=== PATIENT | female | born 1955 | race Caucasian/White ===

== ENCOUNTER 2020-03-16 04:27 | Emergency (ER) | payer MEDICARE, OTHER ==
[~2020-03-16] VITALS: Ht 160 cm; Wt 74.8 kg
--- NOTE | 2020-03-16 04:39 | NUR ---
PT CAME TO THE ER C/O NASUEA AND VOMITING X 4 DAYS. PT DENIES ABD PAIN. PT AAOX4, VSS, RESPIRATIONS EVEN AND UNLABORED ON RA W/ NAD NOTED. PT CONNECTED TO THE MONITOR AND POX
[2020-03-16] MEDS ORDERED: ONDANSETRON HCL/PF 4 MG/2 ML VIAL IVP ONE (05:00)
[2020-03-16] MEDS ORDERED: IV NS 0.9% 1,000 ML BAG IV ONE (05:00)
[2020-03-16] MEDS ORDERED: ONDANSETRON HCL/PF 4 MG/2 ML VIAL ONE (05:02)
[2020-03-16 05:09] LABS: BASOPHILS % (AUTO) 0.5 % (0.0-2.0); EOSINOPHILS % (AUTO) 1.6 % (0.0-6.0); HEMATOCRIT 47 % (33-45); HEMOGLOBIN 15.5 g/dL (11.5-14.8); LYMPHOCYTES # (AUTO) 1.3 /CMM (0.8-4.8); LYMPHOCYTES % (AUTO) 17.7 % (20.0-44.0); MEAN CORPUSCULAR HGB CONC 33 g/dl (31.0-36.0); MEAN CORPUSCULAR VOLUME 95 fL (82-100); MONOCYTES # (AUTO) 1.2 /CMM (0.1-1.30); MONOCYTES % (AUTO) 15.5 % (2.0-12.0); NEUTROPHILS # (AUTO) 4.9 /CMM (1.8-8.9); NEUTROPHILS % (AUTO) 64.7 % (43.0-81.0); PLATELET COUNT (AUTO) 298 /CMM (150-450); RED BLOOD CELL COUNT(AUTO) 4.89 MIL/uL (4.0-5.2); WHITE BLOOD COUNT (AUTO) 7.6 K/uL (4.3-11.0)
[2020-03-16 05:51] LABS: MONOCYTES % (MANUAL) 10 % (0-11.0)
[2020-03-16 05:52] LABS: LYMPHOCYTES % (MANUAL) 20 % (16-48)
[2020-03-16 05:53] LABS: EOSINOPHILS % (MANUAL) 1 % (0-4)
[2020-03-16 05:54] LABS: NEUTROPHILS % (MANUAL) 69 (42-76)
[2020-03-16 06:10] LABS: ALANINE AMINOTRANSFERASE 16 U/L (12-78); ALKALINE PHOSPHATASE 92 U/L (46-116); ASPARTATE AMINOTRANSFERASE 19 U/L (15-37); BILIRUBIN,DIRECT 0.2 mg/dL (0.0-0.2); BILIRUBIN,TOTAL 0.7 mg/dL (0.2-1.0); CALCIUM, SERUM 9.5 mg/dL (8.5-10.1); CARBON DIOXIDE 25 mmol/L (21-32); CHLORIDE 104 mmol/L (98-107); CREATININE 1.1 mg/dL (0.6-1.3); GLUCOSE 94 mg/dL (74-106); LIPASE 50 U/L (73-393); POTASSIUM 3.7 mmol/L (3.5-5.1); SODIUM SERUM 142 mmol/L (136-145); TOTAL PROTEIN, SERUM 8.7 g/dL (6.4-8.2); UREA NITROGEN, BLOOD 24 mg/dL (7-18)
--- NOTE | 2020-03-16 06:42 | NUR ---
IV removed. Catheter intact and site benign. Pressure and 4x4 applied to site. No bleeding noted.
--- NOTE | 2020-03-16 06:42 | NUR ---
Patient discharged to home in stable condition. Written and verbal after care instructions given. Patient verbalizes understanding of instruction and RX. Pt ambulated with steady gait. Denies pain.
[2020-03-16 06:43] VITALS: BP 132/77
[2020-03-17] MEDS ORDERED: EMTR1TAB17 PO (12:53)
[2020-03-17] MEDS ORDERED: ASPI-1420 PO (12:53)
[2020-03-17] MEDS ORDERED: VALS80TA31 PO (12:53)
[2020-03-17] MEDS ORDERED: AMIT50TA3 PO (12:53)
[2020-03-17] MEDS ORDERED: OMEP20CA15 PO (12:53)
[2020-03-17] MEDS ORDERED: DOLU50TA PO (12:53)
== END 2020-03-16 06:43 | disposition home or self-care (01) ==
LOC: ER 04:31
DX: R11.2 Nausea with vomiting, unspecified (principal); I10 Essential (primary) hypertension; E78.5 Hyperlipidemia, unspecified
CPT/HCPCS: 36415; 80048; 80076; 83690; 84484; 85025; 93005; 96361; 96374; 99284; J2405; J7030

== ENCOUNTER 2020-03-17 09:03 | Inpatient (IN) | payer MEDICAID, MEDICARE ==
[~2020-03-17] VITALS: Ht 165.1 cm; Wt 79.4 kg
--- NOTE | 2020-03-17 09:15 | NUR ---
CAME IN FOR NAUSEA AND VOMITING X 3 DAYS, STATES "I WAS HERE YESTERDAY WITH THE SAME REASON, I HAVEN'T BEEN ABLE TO DRINK OR EAT ANYTHING, THE MEDICATION THEY GAVE ME DIDN'T WORK". TO ER BED 9, HOOKED TO MONITOR, CHANGED TO HOSP GOWN, WARM BLANKET PROVIDED, PATIENT AAO x 4, BREATHING EVEN AND UNLABORED. DR SERRANO AT BEDSIDE
[2020-03-17] MEDS ORDERED: ONDANSETRON HCL/PF 4 MG/2 ML VIAL ONE ×2 (09:29→10:55)
[2020-03-17] MEDS ORDERED: ONDANSETRON HCL/PF 4 MG/2 ML VIAL IVP ONE (09:30)
[2020-03-17] MEDS ORDERED: IV NS 0.9% 500 ML BAG IV ONE (09:30)
--- NOTE | 2020-03-17 09:40 | NUR ---
URINE SAMPLE COLLECTED AND SENT TO LAB
[2020-03-17 09:42] LABS: BASOPHILS % (AUTO) 0.4 % (0.0-2.0); HEMATOCRIT 45 % (33-45); LYMPHOCYTES # (AUTO) 1.2 /CMM (0.8-4.8); LYMPHOCYTES % (AUTO) 13.5 % (20.0-44.0); MEAN CORPUSCULAR HGB CONC 33 g/dl (31.0-36.0); MEAN CORPUSCULAR VOLUME 97 fL (82-100); MONOCYTES % (AUTO) 10.9 % (2.0-12.0); NEUTROPHILS # (AUTO) 6.7 /CMM (1.8-8.9); NEUTROPHILS % (AUTO) 74.2 % (43.0-81.0); PLATELET COUNT (AUTO) 298 /CMM (150-450); RED BLOOD CELL COUNT(AUTO) 4.66 MIL/uL (4.0-5.2)
[2020-03-17 09:51] LABS: BILIRUBIN,URINE MODERATE (NEGATIVE); BLOOD, URINE Small Ery/uL (NEGATIVE); KETONES,URINE 80 (NEGATIVE); LEUKOCYTE ESTERASE ,URINE Small (NEGATIVE); NITRITE, URINE Negative (NEGATIVE); PH,URINE 5.5 (5.0-8.0); PROTEIN,URINE 30 mg/dl (NEGATIVE); UGLUCOSE Negative (NEGATIVE)
[2020-03-17 09:53] LABS: APPEARANCE,URINE SLIGHTLY CLOUDY (CLEAR); COLOR,URINE DARK YELLOW (YELLOW)
[2020-03-17 09:58] LABS: ALBUMIN 3.8 g/dL (3.4-5.0); BILIRUBIN,DIRECT 0.2 mg/dL (0.0-0.2); BILIRUBIN,TOTAL 0.7 mg/dL (0.2-1.0); POTASSIUM 4.1 mmol/L (3.5-5.1); TOTAL PROTEIN, SERUM 8.3 g/dL (6.4-8.2)
[2020-03-17 09:58] LABS: BACTERIA,URINE Few /HPF (None Seen); SQUAMOUS EPITHELIAL CELL,UR Moderate /HPF (None Seen)
[2020-03-17] MEDS ORDERED: ONDANSETRON HCL/PF 4 MG/2 ML VIAL IV ONE (11:00)
[2020-03-17] MEDS ORDERED: IV NS 0.9% 1,000 ML IV ONE (11:00)
--- NOTE | 2020-03-17 12:46 | NUR ---
[facility].
[2020-03-17] MEDS ORDERED: ASPI-1420 PO (12:53)
[2020-03-17] MEDS ORDERED: DOLU50TA PO (12:53)
[2020-03-17] MEDS ORDERED: VALS80TA31 PO (12:53)
[2020-03-17] MEDS ORDERED: OMEP20CA15 PO (12:53)
[2020-03-17] MEDS ORDERED: EMTR1TAB17 PO (12:53)
[2020-03-17] MEDS ORDERED: AMIT50TA3 PO (12:53)
[2020-03-17] MEDS ORDERED: CEFTRIAXONE 1 G in IV D5W 50 ML IV ONE (13:30)
[2020-03-17] MEDS ORDERED: CEFTRIAXONE 1GM BAG (ER ONLY) 50 ML IV ONE (13:56)
[2020-03-17] MEDS ORDERED: FAMOTIDINE/PF INJ 20 MG/2 ML VIAL IV ONE ×2 (13:57→14:00)
[2020-03-17] MEDS ORDERED: MAG HYDROX/AL HYDROX/SIMETH 30 ML UDC ONE (13:57)
[2020-03-17] MEDS ORDERED: LIDOCAINE VISCOUS 2% UD 15 ML UDC ONE (13:57)
[2020-03-17] MEDS ORDERED: MAG HYDROX/AL HYDROX/SIMETH 30 ML UDC PO ONE (14:00)
[2020-03-17] MEDS ORDERED: LIDOCAINE VISCOUS 2% UD 15 ML UDC MM ONE (14:00)
[2020-03-17] MEDS ORDERED: IV NS 0.9% 1,000 ML IV PRN (14:05)
--- NOTE | 2020-03-17 14:11 | NUR ---
RAPID COVID SWAB DONE AND SENT TO LAB.
--- NOTE | 2020-03-17 14:22 | NUR ---
DR SPAULDING AT BEDSIDE
[2020-03-17] MEDS ORDERED: MAG HYDROX/AL HYDROX/SIMETH 30 ML UDC PO PRN (14:30)
[2020-03-17] MEDS ORDERED: ZOLPIDEM TARTRATE 5 MG TABLET PO PRN (14:30)
[2020-03-17] MEDS ORDERED: HYDROCODONE/APAP 5/325MG TABLET PO PRN (14:30)
[2020-03-17] MEDS ORDERED: ACETAMINOPHEN 325 MG TABLET PO PRN (14:30)
[2020-03-17] MEDS ORDERED: MAGNESIUM HYDROXIDE 30 ML UDC PO PRN (14:30)
[2020-03-17] MEDS ORDERED: ONDANSETRON HCL/PF 4 MG/2 ML VIAL IVP PRN (14:30)
[2020-03-17] MEDS ORDERED: Z GUARD REMEDY 2 OZ OINT TP PRN (14:30)
[2020-03-17] MEDS ORDERED: ENOXAPARIN SODIUM 30 MG/0.3 ML DISP.SYRIN SQ SCH (14:30)
--- NOTE | 2020-03-17 15:04 | NUR ---
CALLED NURSING SUP FOR BED, PER NURSING SUP WILL "CALL BACK IN 10 MINUTES".
--- NOTE | 2020-03-17 15:11 | NUR ---
CALLED NURSING SUP FOR M/S BED.
--- NOTE | 2020-03-17 15:12 | NUR ---
NURSING SUP GAVE M/S BED 109-1.
--- NOTE | 2020-03-17 15:46 | NUR ---
REPORT GIVEN TO B[facility]ITO DE OF [facility] UNIT
[2020-03-17] MEDS ORDERED: ENOXAPARIN SODIUM 40 MG/0.4 ML DISP.SYRIN SQ SCH (17:00)
--- NOTE | 2020-03-17 17:04 | NUR ---
transferred to [facility] unit by county program technician
--- NOTE | 2020-03-17 17:05 | NUR ---
RN NOTES RECEIVED PT FROM ER . PT IS ALERT AND ORIENTED X4. PT IS IN ROOM AIR 96%. PT CAME IN FOR NAUSEA AND VOMITING SINCE FRIDAY. SKIN IS INTACT.AMBULATORY AND USES TOILET .SAFETY MEASUREMENTS ARE IMPLEMENTED BY HOSPITAL . BED IS IN THE LOWEST POSITION. SIDE RAILS ARE UP X2. CALL LIGHT WITHIN REACH. WILL CONTINUE TO MONITOR.
--- NOTE | 2020-03-17 19:21 | NUR ---
RN CLOSING NOTES PT IS RESTING IN BED, ALERT AND ORIENTED X4. SPEAKS CENTRAL AFRICAN. FULL CODE PER PATIENT AND WINTER BEING IN THE ROOM. ENDORSED TO DENTAL AMALGAM PROCESSOR NURSE ABOUT NPO AFTER MIDNIGHT, CONSENT FORM AND PUTTING NG TUBE BEFORE EGD PROCEDURE O REDUCE ASPIRATION PRECAUTION. PT IS ON ROOM AIR SATURATING AT 97% ON SR ON THE MONITOR IN MED SURGE, LEFT ACg# 22 INTACT, PATENT AND FLUSHING WELL. ALL NEEDS ATTENDED TOO, CALL LIGHT WITHIN REACH AND FUNCTIONING. BED LOCKED AND IN LOWEST POSITION.WILL ENDORSE TO NIGHTSHIFT FOR MERARY
[2020-03-17] MEDS ORDERED: AMITRIPTYLINE HCL 50 MG TABLET PO PRN (19:30)
[2020-03-17] MEDS ORDERED: AMITRIPTYLINE HCL 25 MG TABLET PO PRN (19:41)
[2020-03-17 20:00] VITALS: BP 119/76
--- NOTE | 2020-03-17 20:00 | NUR ---
RN OPENING NOTE PT RECEIVED IN BED , A/A/O X4 .VSS, PT HAS IV ACCESS L AC 20G, PATENT. SAFETY MEASURES IN PLACE BED AT LOWEST POSITION LOCKED, CALL LIGHT IN REACH, SIDE RAILS X2 UP.
[2020-03-18 04:00] VITALS: BP 115/55
[2020-03-18 06:34] LABS: BASOPHILS % (AUTO) 0.8 % (0.0-2.0); EOSINOPHILS % (AUTO) 3.1 % (0.0-6.0); HEMATOCRIT 40 % (33-45); HEMOGLOBIN 13.2 g/dL (11.5-14.8); LYMPHOCYTES # (AUTO) 1.2 /CMM (0.8-4.8); LYMPHOCYTES % (AUTO) 22.4 % (20.0-44.0); MEAN CORPUSCULAR HGB CONC 33 g/dl (31.0-36.0); MEAN CORPUSCULAR VOLUME 96 fL (82-100); MONOCYTES # (AUTO) 0.9 /CMM (0.1-1.30); MONOCYTES % (AUTO) 17.9 % (2.0-12.0); NEUTROPHILS # (AUTO) 2.9 /CMM (1.8-8.9); NEUTROPHILS % (AUTO) 55.8 % (43.0-81.0); PLATELET COUNT (AUTO) 244 /CMM (150-450); RED BLOOD CELL COUNT(AUTO) 4.16 MIL/uL (4.0-5.2); WHITE BLOOD COUNT (AUTO) 5.2 K/uL (4.3-11.0)
[2020-03-18 07:26] LABS: ALBUMIN 2.9 g/dL (3.4-5.0); BILIRUBIN,TOTAL 0.5 mg/dL (0.2-1.0); CALCIUM, SERUM 8.1 mg/dL (8.5-10.1); CREATININE 0.7 mg/dL (0.6-1.3); MAGNESIUM 2.3 mg/dL (1.8-2.4); PHOSPHORUS 1.7 mg/dL (2.5-4.9); POTASSIUM 3.6 mmol/L (3.5-5.1); TOTAL PROTEIN, SERUM 6.8 g/dL (6.4-8.2)
[2020-03-18] MEDS ORDERED: OMEPRAZOLE 20 MG CAPSULE.DR PO SCH (07:30)
--- NOTE | 2020-03-18 07:36 | NUR ---
RN NOTE AT 0715 PT REMOVED HER NG TUBE AND IV. 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 NO SIGN OF BLEEDING IN IV SITE. PT SIGNED BELONGING FORM AND ESCORTED TO THE LOBBY.
--- NOTE | 2020-03-18 07:40 | NUR ---
left message to RADHA GEE and AMANDA Billings [phone] ,and nursing scanning supervisor was notified at this time
[2020-03-18] MEDS ORDERED: PANTOPRAZOLE 40 MG VIAL IV SCH (09:00)
[2020-03-18] MEDS ORDERED: ASPIRIN EC 81 MG TABLET.DR PO SCH (09:00)
[2020-03-18] MEDS ORDERED: Medication Not On Formulary EA (Dolutegravir Sodium (Tivicay) 50 MG) PO SCH (09:00)
[2020-03-18] MEDS ORDERED: Medication Not On Formulary EA (Emtricitabine/Tenofov Alafenam (Descovy 200-25 mg Tablet PO SCH (09:00)
[2020-03-18] MEDS ORDERED: VALSARTAN 80 MG TABLET PO SCH (09:00)
[2020-03-18 09:04] LABS: EOSINOPHILS % (MANUAL) 3 % (0-4); LYMPHOCYTES % (MANUAL) 18 % (16-48); MONOCYTES % (MANUAL) 15 % (0-11.0); NEUTROPHILS % (MANUAL) 64 (42-76)
[2020-03-18] MEDS ORDERED: CEFTRIAXONE 1 G in IV D5W 50 ML IV SCH (14:00)
== END 2020-03-18 07:30 | disposition left against medical advice (07) | DRG 243 ==
LOC: ER 09:10 → MEDSG1 16:34
PROVIDERS: ADMIT Nurse Practitioner Acute Care; ATTEND Nurse Practitioner Acute Care
DX: K22.0 Achalasia of cardia (principal); I10 Essential (primary) hypertension; E78.5 Hyperlipidemia, unspecified; Z91.14 Patient's other noncompliance with medication regimen; R13.10 Dysphagia, unspecified; R79.89 Other specified abnormal findings of blood chemistry
CPT/HCPCS: 36415; 70490-TC; 71045-TC; 80048-TC; 80053-TC; 80076-TC; 81000-TC; 83690-TC; 83735-TC; 84100-TC; 85025-TC; 85610-TC; 87081-TC; C9803-CS; G0378; J0696; J1650; J2405; J3490; J7030; J7040; J7060

== ENCOUNTER 2021-07-27 03:50 | Emergency (ER) | payer MEDICARE, OTHER ==
[~2021-07-27] VITALS: Ht 160 cm; Wt 81.6 kg
[~2021-07-27 03:50] MED LIST: AMIT50TA3 PO; ASPI-1420 PO; DOLU50TA PO; EMTR1TAB17 PO; OMEP20CA15 PO; VALS80TA31 PO
--- NOTE | 2021-07-27 04:02 | NUR ---
[facility] FROM [facility] TO ER BED 10. AAOX4. NOT IN RESP DISTRESS. BROUGHT IN FOR RIGHT ABDOMINAL PAIN SINCE YESTERDAY. REPORT 03/02 PAIN AGGREVATED BY WALKING. NO TENDERNESS UUPON PALPATION OVER MCBURNEY'S POINT. DENIES N/V/D. LAST BM YESTERDAY. MD AT BEDSIDE FOR EVAL. AWAITING FOR ORDERS
[2021-07-27] MEDS ORDERED: KETOROLAC TROMETHAMINE INJ 30 MG/ML VIAL IV ONE (04:30)
[2021-07-27] MEDS ORDERED: ONDANSETRON HCL/PF 4 MG/2 ML VIAL IVP ONE (04:30)
[2021-07-27] MEDS ORDERED: IV NS 0.9% 500 ML BAG IV ONE (04:30)
[2021-07-27] MEDS ORDERED: ONDANSETRON HCL/PF 4 MG/2 ML VIAL ONE (04:34)
[2021-07-27] MEDS ORDERED: KETOROLAC TROMETHAMINE INJ 30 MG/ML VIAL ONE (04:35)
[2021-07-27 04:40] LABS: BASOPHILS % (AUTO) 0.6 % (0.0-2.0); EOSINOPHILS % (AUTO) 2.2 % (0.0-6.0); HEMATOCRIT 39 % (33-45); HEMOGLOBIN 13.4 g/dL (11.5-14.8); LYMPHOCYTES # (AUTO) 1.6 K/uL (0.8-4.8); LYMPHOCYTES % (AUTO) 24.2 % (20.0-44.0); MEAN CORPUSCULAR HGB CONC 35 g/dl (31.0-36.0); MEAN CORPUSCULAR VOLUME 98 fL (82-100); MONOCYTES # (AUTO) 0.6 K/uL (0.1-1.30); MONOCYTES % (AUTO) 9.4 % (2.0-12.0); NEUTROPHILS # (AUTO) 4.3 K/uL (1.8-8.9); NEUTROPHILS % (AUTO) 63.6 % (43.0-81.0); PLATELET COUNT (AUTO) 326 K/uL (150-450); RED BLOOD CELL COUNT(AUTO) 3.95 MIL/uL (4.0-5.2); WHITE BLOOD COUNT (AUTO) 6.7 K/uL (4.3-11.0)
--- NOTE | 2021-07-27 04:41 | NUR ---
UNABLE TO PROVIDE URINE, WILL CHECK LATER.
[2021-07-27 04:47] LABS: ALBUMIN 3.5 g/dL (3.4-5.0); BILIRUBIN,DIRECT 0.2 mg/dL (0.0-0.2); BILIRUBIN,TOTAL 0.6 mg/dL (0.2-1.0); CALCIUM, SERUM 9.1 mg/dL (8.5-10.1); POTASSIUM 3.8 mmol/L (3.5-5.1); TOTAL PROTEIN, SERUM 7.4 g/dL (6.4-8.2)
[2021-07-27] MEDS ORDERED: POLY17PO4 PO (05:57)
[2021-07-27] MEDS ORDERED: DOCU-141 PO (05:57)
--- NOTE | 2021-07-27 06:02 | NUR ---
urine collected and sent to lab
--- NOTE | 2021-07-27 06:05 | NUR ---
CALLED LAB TO [facility] URINE.
[2021-07-27 07:05] LABS: BILIRUBIN,URINE SMALL (NEGATIVE); COLOR,URINE YELLOW (YELLOW); LEUKOCYTE ESTERASE ,URINE NEGATIVE (NEGATIVE); NITRITE, URINE NEGATIVE (NEGATIVE); PH,URINE 5.5 (5.0-8.0); PROTEIN,URINE NEGATIVE (NEGATIVE); UGLUCOSE NEGATIVE (NEGATIVE)
[2021-07-27 08:18] LABS: BACTERIA,URINE Rare /HPF (None Seen); SQUAMOUS EPITHELIAL CELL,UR Few /HPF (None Seen); WBC,URINE 0-2 /HPF (0-3)
[2021-07-27] MEDS ORDERED: ACETAMINOPHEN 325 MG TABLET PO ONE (09:00)
--- NOTE | 2021-07-27 09:00 | NUR ---
IV removed. Catheter intact and site benign. Pressure and 4x4 applied to site. No bleeding noted.Patient discharged to home in stable condition. Written and verbal after care instructions given. Patient verbalizes understanding of instruction.
[2021-07-27 09:01] VITALS: BP 134/61
[2021-07-27] MEDS ORDERED: ACETAMINOPHEN 325 MG TABLET ONE (09:01)
--- NOTE | 2021-07-27 09:07 | NUR ---
Patient discharged to home in stable condition. Written and verbal after care instructions given. Patient verbalizes understanding of instruction. IV removed. Catheter intact and site benign. Pressure and 4x4 applied to site. No bleeding noted. patient is calling her daughter for transportation.
== END 2021-07-27 09:16 | disposition home or self-care (01) ==
LOC: ER 04:15
DX: K59.00 Constipation, unspecified (principal); R10.9 Unspecified abdominal pain; F12.90 Cannabis use, unspecified, uncomplicated; Z79.899 Other long term (current) drug therapy
CPT/HCPCS: 36415; 74176; 80048; 80076; 81001; 83690; 85025; 96374; 96375; 99285; J1885; J2405; J7040

== ENCOUNTER 2024-09-29 08:58 | Emergency (ER) | payer MEDICARE, OTHER ==
[~2024-09-29] VITALS: Ht 160 cm; Wt 66.2 kg
[~2024-09-29 08:58] MED LIST changes: +DOCU-141 PO; +POLY17PO4 PO
[2024-09-29 09:04] VITALS: TEMP 98.1
[2024-09-29] MEDS ORDERED: LIDOCAINE VISCOUS 2% UD 15 ML UDC ONE (09:26)
[2024-09-29] MEDS ORDERED: HYDROCODONE/APAP 5/325MG TABLET ONE (09:26)
[2024-09-29] MEDS ORDERED: LET SOLN TOPICAL 8 ML UDC TP ONE (09:31)
[2024-09-29] MEDS: LIDOCAINE VISCOUS 2% UD 15 ML UDC MM ONE (09:31)
[2024-09-29] MEDS: LET SOLN TOPICAL 8 ML UDC TP ONE (09:42)
[2024-09-29] MEDS: HYDROCODONE/APAP 5/325MG TABLET PO ONE (09:42)
[2024-09-29] MEDS ORDERED: HYDR-4303 PO (10:14)
[2024-09-29 14:59] VITALS: BP 142/90; O2SAT 98
== END 2024-09-29 11:30 | disposition home or self-care (01) ==
LOC: ER 09:03
DX: N90.89 Other specified noninflammatory disorders of vulva and perineum (principal); I10 Essential (primary) hypertension; F17.200 Nicotine dependence, unspecified, uncomplicated; Z79.624 Long term (current) use of inhibitors of nucleotide synthesis; Z79.82 Long term (current) use of aspirin; Z79.899 Other long term (current) drug therapy